=== PATIENT | female | born 1995 | race Caucasian/White ===

== ENCOUNTER → 2021-04-20 | Outpatient (CLI) | payer BC ==
[~2021-04-20] MED LIST: AMBIEN 5MG TABLE5 MG PO; AMOXICILLIN 8751 TAB PO; AUGMENTIN 250 M1 TAB PO; CEPHALEXIN500 M1 PO; DOXYCYCLINE 10100 MG; DURICEF 500MG500 MG PO; MOTRIN 600600 MG/TAB PO; MOTRIN 800800 MG/TAB PO; NO HOME MEDICATIONS; NORCO 325 MG-51 TAB PO; PERCOCET 325 MG1 TA2 PO; PREDNISONE20 MG PO; PRENATAL TABLET PO; PRENATAL1 TA2 PO; PROAIR HFA0.09 MG/AC IH; SENOKOT S 50 MG1 TAB PO; SLOW FE160 MG PO; STOOL SOFTENER100 M2 PO; TYLENOL #3 301 UDTAB PO; ZYRTEC 10MG10 MG PO
== END ==
LOC: COL.RAD 09:11
DX: R10.11 Right upper quadrant pain (principal)

== ENCOUNTER 2021-09-14 05:24 | Inpatient (IN) | payer BC ==
[2021-09-14] VITALS (16 sets, daily range): BP systolic 100–118; BP diastolic 52–71; PULSE 68–109; TEMP 97.8–98.4
[~2021-09-14] VITALS: Ht 152.5 cm; Wt 86.8 kg
[~2021-09-14 05:24] MED LIST changes: -MOTRIN 800800 MG/TAB PO; -PRENATAL TABLET PO; -STOOL SOFTENER100 M2 PO
--- NOTE | 2021-09-14 06:20 | NUR ---
Dominic RN and Jaylene HULL receive bedside report from Adriana. Assessment completed and plan of care discussed and questions answered.
[2021-09-14] MEDS ORDERED: STOOL SOFTENER100 M2 PO (06:22)
[2021-09-14] MEDS ORDERED: PRENATAL TABLET PO (06:22)
[2021-09-14 06:51] LABS: BASO % 0.3 % (0.0-2.0); EOS # 0.2 K/mm3 (0.0-0.7); EOS % 1.7 % (0-4.0); GRAN # 6.7 K/mm3 (1.4-6.5); HEMATOCRIT 34.6 % (37.0-47.0); LYMPH # 2.1 K/mm3 (1.2-3.4); LYMPH % 21.3 % (20.0-51.0); MEAN CELL VOLUME 89 fl (80.0-100.0); MEAN CORPUSCULAR HEMOGLOBIN 31 pg (27.0-31.0); MEAN CORPUSCULAR HGB CONC 35 g/dl (33.0-37.0); MEAN PLATELET VOLUME 10.3 fl (7.4-10.4); MONO # 0.7 K/mm3 (0.1-0.6); PLATELET COUNT 193 K/mm3 (130-400); RED BLOOD COUNT 3.89 M/mm3 (4.10-5.30)
--- NOTE | 2021-09-14 12:30 | NUR ---
Patient denies any leaking of fluid/vaginal bleeding/regular contractions/decreased movement.
[2021-09-14] MEDS ORDERED: MOTRIN 800800 MG/TAB PO (15:53)
[2021-09-14] MEDS ORDERED: PERCOCET 325 MG1 TA2 PO (15:53)
[2021-09-15 03:00] VITALS: BP 101/42; PULSE 79; TEMP 97.9
[2021-09-15 08:00] VITALS: BP 104/45; PULSE 84; TEMP 97.6
--- NOTE | 2021-09-15 09:21 | NUR ---
Initial visit; Parents thanked Labor Relations Analyst for offering congratulations and God's blessings for the of their son. Labor Relations Analyst thanked family for choosing [facility].
[2021-09-15 16:00] VITALS: BP 99/52; PULSE 82; TEMP 97.8
[2021-09-15 22:00] VITALS: BP 110/60; PULSE 77; TEMP 98.3
[2021-09-16 08:00] VITALS: BP 105/63; PULSE 77; TEMP 97.7
--- NOTE | 2021-09-16 12:41 | NUR ---
1145DISCHARGE INSTRUCTIONS REVIEWED WITH PATIENT. PATIENT VERBALIZED UNDERSTANDING. PATIENT WILL NOTIFY THIS RN WHEN READY TO LEAVE. [id number] PERSONAL BELONGINGS GATHERED FROM PATIENT ROOM. PATIENT LEFT AMBULATORY AND IN NO APPARENT DISTRESS. PATIENT ACCOMPANIED BY SPOUSE AND THIS RN.
== END 2021-09-16 12:15 | disposition home or self-care (01) | DRG 788 ==
LOC: OB 05:24
PROVIDERS: ADMIT Obstetrics & Gynecology
PROC: 10D00Z1 Extraction of Products of Conception, Low, Open Approach (ICD-10-PCS; principal; 2021-09-14)
DX: O34.211 Maternal care for low transverse scar from previous cesarean delivery (principal); O99.214 Obesity complicating childbirth; O99.52 Diseases of the respiratory system complicating childbirth; J45.909 Unspecified asthma, uncomplicated; O35.8XX0 Maternal care for other (suspected) fetal abnormality and damage, not applicable or unspecified; Z3A.39 39 weeks gestation of pregnancy; Z37.0 Single live birth
CPT/HCPCS: J0690; J1100; J1885; J2405; J2590; J2765; J3010; J7120